=== PATIENT | male | born 1980 ===

== ENCOUNTER 2019-01-04 22:11 | Emergency (ER) | payer OTHER ==
[~2019-01-04] VITALS: Ht 175.3 cm; Wt 79.5 kg
[2019-01-04 22:46] VITALS: BP 137/84
== END 2019-01-04 22:48 | disposition home or self-care (01) ==
LOC: ER 22:13
DX: S81.812A Laceration without foreign body, left lower leg, initial encounter (principal); S11.81XA Laceration without foreign body of other specified part of neck, initial encounter; S41.112A Laceration without foreign body of left upper arm, initial encounter; S41.111A Laceration without foreign body of right upper arm, initial encounter; S70.312A Abrasion, left thigh, initial encounter; S70.311A Abrasion, right thigh, initial encounter; S80.811A Abrasion, right lower leg, initial encounter; Z91.018 Allergy to other foods; V49.9XXA Car occupant (driver) (passenger) injured in unspecified traffic accident, initial encounter; Y93.89 Activity, other specified; Y92.488 Other paved roadways as the place of occurrence of the external cause; Y99.8 Other external cause status
CPT/HCPCS: 99283